=== PATIENT | female | born 1960 | race American Indian/Alaskan Native ===

== ENCOUNTER 2016-04-16 22:12 | Emergency (ER) | payer OTHER ==
[2016-04-16] MEDS ORDERED: DILAUDID IM ONE (22:34)
[2016-04-16 22:36] VITALS: BP 121/81
--- NOTE | 2016-04-16 22:52 | Emergency Department Report ---
ED Back Pain/Injury HPI - General Chief Complaint: Back Pain/Injury Stated Complaint: LOWER BACK PAIN/FALL Time Seen by Provider: 04/16/16 22:28 Source: patient, EMS Limitations: Physical Limitation - History of Present Illness Initial Comments: Patient reports the child pulled the chair out from underneath her. She fell down hard on her buttock and back. She indicates that she did have surgery in the lumbar region last year with some casandra placement. He denies any numbness or tingling down the legs. She does report pain in the lower lumbar region and paralumbar region. Due to pain at this time. Ultimately had to call EMS for further care. MD Complaint: back pain, back injury Onset/Timin -: Sudden Similar Symptoms Previously: Yes Place: home Radiation: none Severity scale (0 -10): 8 Quality: sharp Consistency: constant Improves With: other (lying on stomach) Worsens With: movement, other (palpation) Context: fall - Related Data Previous Rx's Medication Instructions Recorded Last Taken Type Meloxicam [Mobic] 15 mg PO DAILY #30 tablet 04/17/16 Unknown Rx Oxycodone HCl/Acetaminophen 1 each PO Q6HR PRN #30 tablet 04/17/16 Unknown Rx [Percocet 10/325 mg] Allergies Allergy/AdvReac Type Severity Reaction Status Date / Time hydrocodone bitartrate Allergy Unknown Verified 01/15/16 13:31 [From Lortab] naproxen Allergy Unknown Verified 01/15/16 13:31 ED Review of Systems ROS: Stated complaint: LOWER BACK PAIN/FALL Other details as noted in HPI Constitutional: denies: chills, fever Eyes: denies: eye pain, eye discharge, vision change ENT: denies: ear pain, throat pain Respiratory: denies: cough, shortness of breath, wheezing Cardiovascular: denies: chest pain, palpitations Endocrine: no symptoms reported Gastrointestinal: denies: abdominal pain, nausea, diarrhea Genitourinary: denies: urgency, dysuria, discharge Musculoskeletal: back pain. denies: joint swelling, arthralgia Skin: denies: rash, lesions Neurological: denies: headache, weakness, paresthesias Psychiatric: denies: anxiety, depression Hematological/Lymphatic: denies: easy bleeding, easy bruising ED Past Medical Hx - Past Medical History Hx Hypertension: Yes Hx Congestive Heart Failure: No Hx Arthritis: Yes Hx Asthma: No Additional medical history: high cholesterol. irregular HR. Chronic back pain - Surgical History Additional Surgical History: rods in lower back - Social History Smoking Status: Current Every Day Smoker Substance Use Type: None - Medications Home Medications: Home Medications Medication Instructions Recorded Confirmed Last Taken Type Meloxicam [Mobic] 15 mg PO DAILY #30 tablet 04/17/16 Unknown Rx Oxycodone HCl/Acetaminophen 1 each PO Q6HR PRN #30 tablet 04/17/16 Unknown Rx [Percocet 10/325 mg] ED Physical Exam - General Limitations: Physical Limitation General appearance: alert, in distress (due to pains), other (lying on her stomach) - Head Head exam: Present: atraumatic, normocephalic - Eye Eye exam: Present: normal appearance - ENT ENT exam: Present: mucous membranes moist - Neck Neck exam: Present: normal inspection - Respiratory Respiratory exam: Present: normal lung sounds bilaterally. Absent: respiratory distress - Cardiovascular Cardiovascular Exam: Present: regular rate, normal rhythm. Absent: systolic murmur, diastolic murmur, rubs, gallop - GI/Abdominal GI/Abdominal exam: Present: soft, normal bowel sounds - Extremities Exam Extremities exam: Present: normal inspection - Back Exam Back exam: Present: normal inspection, tenderness (mid lumbar and paralumbar region. No bony step-off.) - Neurological Exam Neurological exam: Present: alert, oriented X3 - Psychiatric Psychiatric exam: Present: normal affect, normal mood - Skin Skin exam: Present: warm, dry, intact, normal color. Absent: rash ED Course Vital Signs 04/16/16 04/17/16 22:30 01:47 Temperature 98.6 F Pulse Rate 85 Respiratory 20 20 Rate Blood Pressure 121/81 Blood Pressure 127/79 [Right] O2 Sat by Pulse 99 99 Oximetry - Reevaluation(s) Reevaluation #1: 04/17/16 05:48 Patient was much more mobile after Dilaudid injection. She was able to stand up and walk around without assistance. She still has some discomfort in her lower back especially with rotation movements. Expressing any weakness or or saddle anesthesia. She ambulates with just a slightly antalgic gait now. X- rays were obtained. No acute pathology noted. I feel she is safe for home and continued assisted. She was given pain medication for home she has follow-up with a pain specialist this week already. ED Medical Decision Making - Radiology Data interpreted by me: Lumbar spine x-ray with 4 hardware screws noted to be in place and appear to be appropriately aligned. There is good joint space noted no acute fracture is noted. Good Alignment is appreciated. Critical care attestation.: If time is entered above; I have spent that time in minutes in the direct care of this critically ill patient, excluding procedure time. ED Disposition Clinical Impression: Lumbar spine strain Qualifiers: Encounter type: initial encounter Qualified Code(s): S39.012A - Strain of muscle, fascia and tendon of lower back, initial encounter Disposition: DISCHARGED TO HOME OR SELFCARE Is pt being admited?: No Does the pt Need Aspirin: No Condition: Stable Instructions: Low Back Strain (ED) Additional Instructions: Caution with activities. return if worsening. Prescriptions: Meloxicam [Mobic] 15 mg PO DAILY #30 tablet Oxycodone HCl/Acetaminophen [Percocet 10/325 mg] 1 each PO Q6HR PRN #30 tablet PRN Reason: Pain Referrals: PRIMARY CARE, [Primary Care Provider] - 3-5 Days Time of Disposition: 00:45
--- NOTE | 2016-04-17 08:25 | XRay Report ---
LUMBOSACRAL SPINE, THREE VIEWS HISTORY: Back pain, trauma. FINDINGS: Compared to 01/15/16. Posterior fusion from L4-S1 appears intact. There is straightening of the normal lordosis. No compression deformity, displaced fracture or bone lesion is appreciated. Mild multilevel spondylosis is unchanged. Sacrum and SI joints are within normal limits. IMPRESSION: No acute injury to the lumbar spine is demonstrated. Surgical and degenerative changes as described.
== END 2016-04-17 01:30 | disposition home or self-care (01) ==
LOC: ED 22:12
DX: S39.012A Strain of muscle, fascia and tendon of lower back, initial encounter (principal); I10 Essential (primary) hypertension; E78.00 Pure hypercholesterolemia, unspecified; F17.200 Nicotine dependence, unspecified, uncomplicated; W07.XXXA Fall from chair, initial encounter; Y93.9 Activity, unspecified; Y92.9 Unspecified place or not applicable; Y99.9 Unspecified external cause status
CPT/HCPCS: 72100; 96372; 99283; J1170

== ENCOUNTER 2016-04-17 15:25 | Emergency (ER) | payer SELFPAY ==
[2016-04-17] MEDS ORDERED: VALIUM ONE (16:06)
[2016-04-17 16:10] VITALS: BP 144/88
[2016-04-17] MEDS ORDERED: VALIUM IM ONE (16:14)
--- NOTE | 2016-04-17 16:35 | Emergency Department Report ---
Chief Complaint: Medical Clearance Stated Complaint: BACK PAIN - HPI History of Present Illness: As per verbal report from nurses Justina Liu and Mirta Torres,the patient was seen last night, and was discharged with a prescription for Percocet 10 mg. The patient presented to an outpatient pharmacy today, where the pharmacist refused to fill the prescription, as the patient had apparently received a prescription for Percocet 10 mg, 60 tablets on April 08. The pharmacist indicates to nurse Brian that he would be willing to fill a low dose of Percocet for breakthrough pain. The patient initially presented to the emergency room earlier on today requesting that her prescription for Percocet be changed. When she found out that the prescription would not be amended, or changes, she refused to sign in or register as a patient. The patient then presented shortly thereafter with emergency medical services complaining of back pain. Vital signs are unremarkable with the exception of mild tachycardia. The patient is not homicidal or suicidal. She is alert and oriented 3. The patient's was offered counseling for narcotic addiction and referral for narcotic addiction which she refused. Her old medical records have been reviewed. She is documented to be ambulating last night. I can see no emergent medical condition at this time, and patient is suitable to wait in the waiting room. Vital Signs 04/17/16 16:09 Temperature 98.3 F Pulse Rate 105 H Respiratory 16 Rate Blood Pressure 144/88 [Left] O2 Sat by Pulse 99 Oximetry - Exam Vital Signs: Vital Signs 04/17/16 16:09 Temperature 98.3 F Pulse Rate 105 H Respiratory 16 Rate Blood Pressure 144/88 [Left] O2 Sat by Pulse 99 Oximetry MSE screening note: Focused history and physical exam performed. Due to findings the following was ordered: ED Disposition for MSE Condition: Stable
== END 2016-04-17 23:00 | disposition left against medical advice (07) ==
LOC: ED 15:25
DX: Z76.0 Encounter for issue of repeat prescription (principal); Z53.21 Procedure and treatment not carried out due to patient leaving prior to being seen by health care provider
CPT/HCPCS: 96372; J3360

== ENCOUNTER 2016-04-18 01:22 | Emergency (ER) | payer OTHER ==
[2016-04-18 01:47] VITALS: BP 139/72
--- NOTE | 2016-04-18 06:20 | Emergency Department Report ---
HPI - General Chief Complaint: Back Pain/Injury Time Seen by Provider: 04/18/16 06:04 - HPI HPI: 55-year-old female presents today complaining of lower back pain. Patient states that the child pulled the chair out from underneath her yesterday. She landed on her buttocks. Patient was seen here by Dr. Little yesterday and was prescribed Mobic and Percocet. Yesterday patient brought in her Percocet prescription for a change and was not given her prescription back. According to Dr. Ash's note patient has been abusing narcotic medication. Patient was given a prescription for Percocet #60 on April 08. Upon confronting patient, she states that she finished that prescription. Denies numbness, weakness, paresthesias. Positive for pain radiating down her legs. Denies fever, chills, nausea, vomiting, chest pain, shortness of breath, abdominal pain. ED Past Medical Hx - Past Medical History Hx Hypertension: Yes Hx Congestive Heart Failure: No Hx Arthritis: Yes Hx Asthma: No Additional medical history: high cholesterol. irregular HR. Chronic back pain - Surgical History Past Surgical History?: Yes Additional Surgical History: rods in lower back - Social History Smoking Status: Current Every Day Smoker Substance Use Type: None - Medications Home Medications: Home Medications Medication Instructions Recorded Confirmed Last Taken Type Meloxicam [Mobic] 15 mg PO DAILY #30 tablet 04/17/16 Unknown Rx Oxycodone HCl/Acetaminophen 1 each PO Q6HR PRN #30 tablet 04/17/16 Unknown Rx [Percocet 10/325 mg] Ibuprofen [Motrin 800 MG tab] 800 mg PO Q8HR PRN #20 tablet 04/18/16 Unknown Rx ED Review of Systems ROS: Stated complaint: BACK PAIN Other details as noted in HPI Constitutional: denies: chills, fever, malaise Eyes: denies: eye pain ENT: denies: ear pain, throat pain, congestion Respiratory: denies: cough, shortness of breath, wheezing Cardiovascular: denies: chest pain, palpitations Endocrine: no symptoms reported Gastrointestinal: denies: abdominal pain, nausea, vomiting Musculoskeletal: back pain Neurological: denies: headache, weakness, numbness, paresthesias Physical Exam - Physical Exam Vital Signs: Vital Signs 04/18/16 01:43 Temperature 99.3 F Pulse Rate 95 H Respiratory 18 Rate Blood Pressure 139/72 O2 Sat by Pulse 100 Oximetry Physical Exam: GENERAL: The patient is well-developed and well-nourished. Patient is in NAD. HEAD: Normocephalic. Atraumatic. CHEST/LUNGS: Clear to auscultation throughout. HEART/CARDIOVASCULAR: Regular rate and rhythm. No murmurs, rubs or gallops. ABDOMEN: Abdomen is soft, nontender. Bowel sounds normoactive. No guarding or rebound tenderness. BACK: Full ROM. Positive for midline and paraspinal tenderness of lumbar region. No tenderness to palpation of sciatic notch bilaterally. Negative straight leg raise bilaterally. NEURO: Alert and oriented x 3. ED Course Vital Signs 04/18/16 01:43 Temperature 99.3 F Pulse Rate 95 H Respiratory 18 Rate Blood Pressure 139/72 O2 Sat by Pulse 100 Oximetry ED Medical Decision Making - Lab Data Vital Signs 04/18/16 01:43 Temperature 99.3 F Pulse Rate 95 H Respiratory 18 Rate Blood Pressure 139/72 O2 Sat by Pulse 100 Oximetry - Medical Decision Making 55-year-old female presents today with acute onset of chronic back pain post fall yesterday. Her x-ray results revealed no acute injury to the lumbar spine , surgical and degenerative changes were seen. Discussed with patient that I am unable to prescribe her narcotic medications due to history of narcotic abuse. Patient will be referred to pain management. Consulted with Dr. Little. Patient is in no acute distress at this time. She will be discharged home and is encouraged to follow up with a primary care provider. She will be sent home on Motrin, as requested by patient, and is encouraged to return to the emergency room for any worsening symptoms. Critical care attestation.: If time is entered above; I have spent that time in minutes in the direct care of this critically ill patient, excluding procedure time. ED Disposition Clinical Impression: Narcotic abuse Lumbar spine strain Qualifiers: Encounter type: subsequent encounter Qualified Code(s): S39.012D - Strain of muscle, fascia and tendon of lower back, subsequent encounter Disposition: DISCHARGED TO HOME OR SELFCARE Is pt being admited?: No Does the pt Need Aspirin: No Condition: Stable Instructions: Muscle Strain (ED), Narcotic Abuse (ED) Additional Instructions: Follow-up with primary care provider and pain management. Return to the emergency department if symptoms worsen. Prescriptions: Ibuprofen [Motrin 800 MG tab] 800 mg PO Q8HR PRN #20 tablet PRN Reason: Pain Referrals: PRIMARY [facility] [Primary Care Provider] - 3-5 Days [facility] [Provider Group] - 3-5 Days Forms: Work/School Release Form(ED) Time of Disposition: 06:19
[2016-04-18] MEDS: TORADOL IM ONE (06:31)
== END 2016-04-18 07:05 | disposition home or self-care (01) ==
LOC: ED 01:22
DX: S39.012D Strain of muscle, fascia and tendon of lower back, subsequent encounter (principal); F11.10 Opioid abuse, uncomplicated; I10 Essential (primary) hypertension; M19.90 Unspecified osteoarthritis, unspecified site; E78.00 Pure hypercholesterolemia, unspecified; G89.29 Other chronic pain; F17.200 Nicotine dependence, unspecified, uncomplicated; Z98.890 Other specified postprocedural states; X58.XXXA Exposure to other specified factors, initial encounter; Y93.9 Activity, unspecified; Y92.89 Other specified places as the place of occurrence of the external cause; Y99.9 Unspecified external cause status
CPT/HCPCS: 96372; 99282; J1885